=== PATIENT | female | born 1995 | race Two or more races ===

== ENCOUNTER 2018-07-13 16:17 | Emergency (ER) | payer SELFPAY ==
[~2018-07-13] VITALS: Ht 170.2 cm; Wt 67.1 kg
[2018-07-13 16:46] VITALS: Ht 170.2 cm; Wt 67.1 kg
[2018-07-13 17:49] VITALS: BP 104/61
== END 2018-07-13 17:49 | disposition home or self-care (01) ==
LOC: ED 16:17
DX: N92.0 Excessive and frequent menstruation with regular cycle (principal)